=== PATIENT | female | born 1985 | race Two or more races ===

== ENCOUNTER → 2016-08-03 | Outpatient (CLI) | payer BC ==
[~2016-08-03] MED LIST: IBU600T
[2016-08-03 12:33] LABS: Basophils # (auto) 0 uL; Basophils % (auto) 0.5 % (0.0-2.0); DEFINITIVE VIEW TRANSMISSION; Eosinophils # (auto) 0 uL; Eosinophils % (auto) 0.3 % (0.0-7.0); Hematocrit 28.7 % (36.0-46.0); Hemoglobin 8.4 g/dL (12.2-16.2); Lymphocytes # (auto) 1.5 uL; Lymphocytes % (auto) 26.1 % (10.0-50.0); Mean Corpuscular Hemoglobin 20.6 pg (28.0-32.0); Mean Corpuscular Hgb Conc. 29.3 g/dL (32.0-36.0); Mean Corpuscular Volume 70.2 fL (80.0-100.0); Mean Platelet Volume 9.3 fL (7.4-10.4); Monocytes # (auto) 0.4 uL; Monocytes % (auto) 6.6 % (0.0-12.0); Neutrophils # (auto) 3.8 uL; Neutrophils % (auto) 66.5 % (37.0-80.0); Platelet Count (auto) 363 10^3/uL (140-450); Red Cell Distribution Width 18.7 % (11.6-16.0); White Blood Cell 5.8 10^3/uL (4.4-10.8)
[2016-08-03 13:22] LABS: Hypochromia Moderate; Platelet Estimate Adequate
[2016-08-03 13:23] LABS: Anisocytosis Slight; Microcytosis Moderate
== END | disposition home or self-care (01) ==
LOC: LAB 09:43
PROVIDERS: ATTEND Internal Medicine Cardiovascular Disease
DX: D64.9 Anemia, unspecified (principal); D51.9 Vitamin B12 deficiency anemia, unspecified
CPT/HCPCS: 36415; 85025

== ENCOUNTER → 2016-08-24 | Outpatient (CLI) | payer BC | END | disposition home or self-care (01) | LOC: LAB 10:00 | PROVIDERS: ATTEND Obstetrics & Gynecology | DX: N93.9 Abnormal uterine and vaginal bleeding, unspecified (principal) ==

== ENCOUNTER → 2016-10-03 | Outpatient (CLI) | payer BC ==
[2016-10-03 16:51] LABS: Basophils # (auto) 0 uL; Basophils % (auto) 0.5 % (0.0-2.0); DEFINITIVE VIEW TRANSMISSION; Eosinophils # (auto) 0.1 uL; Eosinophils % (auto) 0.9 % (0.0-7.0); Hematocrit 29.2 % (36.0-46.0); Hemoglobin 8.9 g/dL (12.2-16.2); Lymphocytes # (auto) 1.7 uL; Lymphocytes % (auto) 24.1 % (10.0-50.0); Mean Corpuscular Hemoglobin 21.5 pg (28.0-32.0); Mean Corpuscular Hgb Conc. 30.6 g/dL (32.0-36.0); Mean Corpuscular Volume 70.1 fL (80.0-100.0); Mean Platelet Volume 9.1 fL (7.4-10.4); Monocytes # (auto) 0.4 uL; Monocytes % (auto) 6.1 % (0.0-12.0); Neutrophils % (auto) 68.4 % (37.0-80.0); Platelet Count (auto) 388 10^3/uL (140-450); White Blood Cell 7.3 10^3/uL (4.4-10.8)
[2016-10-03 16:58] LABS: Red Cell Distribution Width 20.8 % (11.6-16.0)
[2016-10-03 19:10] LABS: Anisocytosis Moderate; Hypochromia Moderate; Platelet Estimate Adequate
[2016-10-03 19:11] LABS: Microcytosis Moderate; Ovalocytes FEW
== END | disposition home or self-care (01) ==
LOC: LAB 14:03
PROVIDERS: ATTEND Internal Medicine Cardiovascular Disease
DX: D64.9 Anemia, unspecified (principal)
CPT/HCPCS: 36415; 85025

== ENCOUNTER 2016-10-13 06:30 | Day surgery (SDC) | payer BC ==
[2016-10-10 12:26] LABS: Basophils # (auto) 0 uL; Basophils % (auto) 0.5 % (0.0-2.0); DEFINITIVE VIEW TRANSMISSION; Eosinophils # (auto) 0 uL; Eosinophils % (auto) 0.3 % (0.0-7.0); Hematocrit 29.4 % (36.0-46.0); Lymphocytes # (auto) 1.5 uL; Lymphocytes % (auto) 24.3 % (10.0-50.0); Mean Corpuscular Hemoglobin 21.2 pg (28.0-32.0); Mean Corpuscular Hgb Conc. 30.7 g/dL (32.0-36.0); Mean Corpuscular Volume 69.3 fL (80.0-100.0); Mean Platelet Volume 9.3 fL (7.4-10.4); Monocytes # (auto) 0.4 uL; Monocytes % (auto) 6.6 % (0.0-12.0); Neutrophils # (auto) 4.2 uL; Neutrophils % (auto) 68.3 % (37.0-80.0); Platelet Count (auto) 421 10^3/uL (140-450); White Blood Cell 6.1 10^3/uL (4.4-10.8)
[2016-10-10 12:31] LABS: Urine Bilirubin Negative (Negative); Urine Blood Negative /uL (Negative); Urine Color Yellow (Yellow); Urine Glucose Normal (Normal); Urine Ketone Negative (Negative); Urine Nitrite Negative (Negative); Urine Urobilinogen Normal (Negative)
[2016-10-10 12:38] LABS: INR 0.94 (0.9-1.15); Partial Thromboplastin Time 25.4 sec (22.64-33.71); Prothrombin Time 10.2 sec (9.37-12.3)
[2016-10-10 12:46] LABS: Albumin 3.5 g/dL (3.4-5.0); BUN/Creatinine Ratio 17.7; Bilirubin, Total 0.3 mg/dL (0.2-1.0); Calcium 8.6 mg/dL (8.5-10.1); Potassium 3.7 mmol/L (3.5-5.1)
[2016-10-10 13:55] LABS: Platelet Estimate Adequate
[2016-10-10 13:56] LABS: Anisocytosis Slight; Hypochromia Slight; Microcytosis Slight; Ovalocytes FEW
[~2016-10-13] VITALS: Ht 165.1 cm; Wt 64.4 kg
[2016-10-13] MEDS ORDERED: ceFAZolin 1GM/50ML D5W 50 ML IV ONE (07:03)
[2016-10-13] MEDS ORDERED: LIDOCAINE HCL (LOCAL ANESTH.) 0.5 % 50ML MDV IJ ONE (09:16)
[2016-10-13] MEDS ORDERED: METHYLENE BLUE 0.5% 5MG/ML 10ml AMP IV ONE (09:16)
[2016-10-13] MEDS ORDERED: BUPIVACAINE 0.25% INJ 50ML VIAL ONE (09:16)
[2016-10-13] MEDS ORDERED: MIDAZOLAM HCL 1MG/1ML-2 ML VIAL ONE (09:28)
[2016-10-13] MEDS ORDERED: PROPOFOL 10 MG/ML 20 ML IV ONE (09:28)
[2016-10-13] MEDS ORDERED: fentaNYL CITRATE 100 MCG/2 ML VL ONE ×2 (09:28→09:33)
[2016-10-13] MEDS ORDERED: ROCURONIUM 10MG/ML 10ML VIAL IV ONE (09:29)
[2016-10-13] MEDS ORDERED: LACTATED RINGER'S 1,000 ML IV SCH (10:57)
[2016-10-13] MEDS ORDERED: ONDANSETRON HCL 4 MG/2 ML VIAL IV PRN (11:00)
[2016-10-13] MEDS ORDERED: ePHEDrine SULFATE 50 MG/ML AMP IV PRN (11:15)
[2016-10-13] MEDS ORDERED: ONDANSETRON HCL 4 MG/2 ML VIAL IV ONE (11:15)
[2016-10-13] MEDS ORDERED: hydrALAZINE HCL 20 MG/ML VL IV PRN (11:15)
[2016-10-13] MEDS: MORPHINE SULF INJ 2 MG/ML SYRINGE 1ML IV PRN ×3 (11:30→11:56)
[2016-10-13 12:40] VITALS: BP 121/72
== END 2016-10-13 12:40 | disposition home or self-care (01) ==
LOC: SUR 06:30
PROVIDERS: ATTEND Obstetrics & Gynecology
DX: N92.0 Excessive and frequent menstruation with regular cycle (principal); Z30.2 Encounter for sterilization; N93.9 Abnormal uterine and vaginal bleeding, unspecified; D64.9 Anemia, unspecified
CPT/HCPCS: 58563; 58671; 80053; 81003; 84702; 85025; 85610; 85730; 86850; 86900; 86901; 86920; 88305; J0690; J2250; J2270; J2405; J2704; J3010; J3490; J7060

== ENCOUNTER → 2018-02-07 | Outpatient (CLI) | payer BC ==
[2018-02-07 11:59] LABS: Urine Blood Negative /uL (Negative); Urine Specific Gravity 1.001 (1.001-1.035)
== END | disposition home or self-care (01) ==
LOC: LAB 09:40
PROVIDERS: ATTEND Internal Medicine Cardiovascular Disease
DX: N39.0 Urinary tract infection, site not specified (principal)
CPT/HCPCS: 81003; 87086; 87088; 87186

== ENCOUNTER → 2018-02-19 | Outpatient (CLI) | payer BC ==
[2018-02-19 11:55] LABS: Basophils # (auto) 0 uL; Hemoglobin 13.2 g/dL (12.2-16.2); Lymphocytes # (auto) 1.8 uL; Monocytes # (auto) 0.5 uL; Red Cell Distribution Width 16.4 % (11.8-14.3)
[2018-02-19 11:57] LABS: Basophils % (auto) 0.3 % (0.0-2.0); Eosinophils # (auto) 0.1 uL; Eosinophils % (auto) 0.8 % (0.0-7.0); Lymphocytes % (auto) 22.7 % (10.0-50.0); Mean Corpuscular Hemoglobin 26.4 pg (28.0-32.0); Mean Corpuscular Hgb Conc. 32.2 g/dL (32.0-36.0); Neutrophils # (auto) 5.5 uL; Neutrophils % (auto) 70.2 % (37.0-80.0); Nucleated Red Blood Cells % 0.2 %; Platelet Count (auto) 273 10^3/uL (140-450); White Blood Cell 7.8 10^3/uL (4.4-10.8)
[2018-02-19 12:08] LABS: Albumin 3.7 g/dL (3.4-5.0); BUN/Creatinine Ratio 14.1; Bilirubin, Total 0.9 mg/dL (0.2-1.0); Calcium 8.7 mg/dL (8.5-10.1); Potassium 3.8 mmol/L (3.5-5.1); Total Protein 7.1 g/dL (6.4-8.2)
== END | disposition home or self-care (01) ==
LOC: LAB 07:50
PROVIDERS: ATTEND Internal Medicine Cardiovascular Disease
DX: Z00.01 Encounter for general adult medical examination with abnormal findings (principal); D64.9 Anemia, unspecified; E55.9 Vitamin D deficiency, unspecified
CPT/HCPCS: 36415; 80053; 80061; 82306; 84443; 85025

== ENCOUNTER → 2020-01-12 | Outpatient (CLI) | payer OTHER | END | disposition home or self-care (01) | LOC: LAB 11:58 | PROVIDERS: ATTEND Nurse Practitioner Family | DX: U07.1 COVID-19 (principal) ==

== ENCOUNTER → 2020-02-03 | Outpatient (CLI) | payer OTHER | END | disposition home or self-care (01) | LOC: LAB 07:54 | PROVIDERS: ATTEND Nurse Practitioner Family | DX: Z20.828 Contact with and (suspected) exposure to other viral communicable diseases (principal) ==

== ENCOUNTER → 2020-05-11 | Outpatient (CLI) | payer OTHER | END | disposition home or self-care (01) | LOC: LAB 08:55 | PROVIDERS: ATTEND Nurse Practitioner Family | DX: Z20.828 Contact with and (suspected) exposure to other viral communicable diseases (principal) | CPT/HCPCS: C9803; U0003 ==